=== PATIENT | male | born 1990 | race American Indian/Alaskan Native ===

== ENCOUNTER 2021-07-19 13:43 | Emergency (ER) | payer SELFPAY ==
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
[2021-07-19 21:52] VITALS: BP 118/72
== END 2021-07-19 21:52 | disposition home or self-care (01) ==
LOC: ED 13:43
DX: M48.50XA Collapsed vertebra, not elsewhere classified, site unspecified, initial encounter for fracture (principal); M54.5 Low back pain; V89.2XXA Person injured in unspecified motor-vehicle accident, traffic, initial encounter; Y92.410 Unspecified street and highway as the place of occurrence of the external cause; Y93.89 Activity, other specified; Y99.8 Other external cause status
CPT/HCPCS: 72100; 72131